=== PATIENT | male | born 1965 | race Caucasian/White ===

== ENCOUNTER 2017-02-28 12:45 | Emergency (ER) | payer OTHER ==
[~2017-02-28] VITALS: Ht 167.6 cm; Wt 117.0 kg
[~2017-02-28 12:45] MED LIST: LISI-725 PO; OMEP40CA41 PO; SIMV20TA2 PO
[2017-02-28 12:47] VITALS: TEMP 36.8; Ht 167.6 cm; Wt 117.0 kg
[2017-02-28] MEDS ORDERED: SODIUM CHLORIDE 0.9% 1000ML 1,000 ML IV STA (12:59)
[2017-02-28] MEDS ORDERED: ONDANSETRON INJ 2 MG/ML 2 ML VIAL IV STA (12:59)
[2017-02-28] MEDS ORDERED: MoRPHine SULFATE 4 MG/ML 1 ML CARP\\VIAL IV PRN (13:00)
[2017-02-28] MEDS ORDERED: IBUP-1450 PO (13:07)
[2017-02-28] MEDS ORDERED: PRLSR20 PO (13:10)
[2017-02-28 13:14] LABS: BASO % 1.1 %; BASO ABS # 0.05 K/uL (0-0.2); COMPLETE YES; EOS % 5.3 %; HEMATOCRIT 44.3 % (42-52); IG% 0.2 %; LYMPH % 38.1 %; MEAN CELL VOLUME 84.7 fL (80-100); MEAN CORPUSCULAR HEMOGLOBIN 28.7 pg (25-34); MEAN CORPUSCULAR HGB CONC 33.9 g/dl (32-36); MEAN PLATELET VOLUME 10.3 fL (7.4-10.4); MONO % 6.6 %; NEUT % 48.7 %; PLATELET COUNT 177 K/uL (130-400); RED BLOOD COUNT 5.23 M/uL (4.7-6.1); WHITE BLOOD COUNT 4.72 K/uL (4.8-10.8)
--- NOTE | 2017-02-28 13:18 | DIAGNOSTIC IMAGING REPORT ---
SINGLE VIEW CHEST CLINICAL HISTORY: Atypical chest pain. FINDINGS: An AP, portable, upright chest radiograph is compared to study dated 05/08/2016. The examination is degraded by portable technique and patient rotation. The cardiomediastinal silhouette is unremarkable. There is minimal left basilar atelectasis. The lungs and pleural spaces are otherwise clear. No pneumothorax is seen. The bony thorax is grossly intact. IMPRESSION: No active disease in the chest. Electronically signed by: Quentin Hoang M.D. 02/28/2017 1:17 PM Dictated Date/Time: 02/28/2017 1:16 PM
[2017-02-28 13:29] LABS: INR 0.9 (0.9-1.1); PARTIAL THROMBOPLASTIN RATIO 0.9
[2017-02-28 13:33] LABS: ALT/SGPT 45 U/L (12-78); AST/SGOT 34 U/L (15-37); BLOOD UREA NITROGEN 11 mg/dl (7-18); BUN/CREATININE RATIO 10.7 (10-20); CALCIUM 9.3 mg/dl (8.5-10.1); CARBON DIOXIDE 29 mmol/L (21-32); CHLORIDE 104 mmol/L (98-107); GLUCOSE 92 mg/dl (70-99); POTASSIUM 4.4 mmol/L (3.5-5.1); SODIUM 138 mmol/L (136-145)
[2017-02-28 13:38] LABS: ALKALINE PHOSPHATASE 74 U/L (45-117); CKMB/CK RATIO 1.8 (0-3.0)
[2017-02-28 13:54] LABS: URINE APPEARANCE CLEAR (CLEAR); URINE BILIRUBIN NEG (NEG); URINE COLOR YELLOW; URINE EPITHELIAL CELL AUTO >30 /lpf (0-5); URINE NITRITE NEG (NEG); URINE PH 5.5 (4.5-7.5); URINE SPECIFIC GRAVITY 1.022 (1.000-1.030); UROBILINOGEN NEG (NEG)
[2017-02-28 14:03] LABS: MANUAL MICROSCOPIC REQUIRED? NO; REVIEW REQ? NO
[2017-02-28] MEDS ORDERED: OPTIRAY 320 IV PRN (15:45)
--- NOTE | 2017-02-28 16:04 | DIAGNOSTIC IMAGING REPORT ---
ADDENDUM Addendum: A 1.4 cm hypodense right adrenal nodule likely reflects an adenoma. Electronically signed by: Kendall Sibley M.D. 02/28/2017 4:04 PM Dictated Date/Time: 02/28/2017 4:[address] OF THE ABDOMEN AND PELVIS WITH CONTRAST CLINICAL HISTORY: Epigastric pain. COMPARISON STUDY: Right upper quadrant ultrasound May 08, 2016. TECHNIQUE: Following IV administration of 94 mL of Optiray-320, axial images of the abdomen and pelvis were obtained from the lung bases to the proximal femurs. Images were reviewed in the axial, sagittal, and coronal planes. IV contrast was administered without complication. Oral contrast was administered. CT DOSE: 1322.73 mGy.cm FINDINGS: Lung bases are clear. Liver morphology is normal. A 1.2 cm hypodense lesion within the right hepatic lobe corresponds to the echogenic lesion shown on ultrasound of May 08, 2016. This likely reflects a hemangioma. A 6 mm hypodense lateral segment lesion is too small to characterize. The spleen, adrenal glands, left kidney and pancreas are normal. A 1.2 cm lesion arising from the upper pole of the right kidney measures just above water attenuation. This was shown to likely reflect a cyst on prior ultrasound. There is no biliary or pancreatic ductal dilatation. There is no peripancreatic or pericholecystic infiltration. There are multiple fat-containing ventral hernias as well as fat-containing bilateral inguinal hernias. There is a fat-containing umbilical hernia. There is no evidence of a bowel obstruction. The appendix is not visualized. There is no lymphadenopathy. Scattered colonic diverticula are noted without evidence for acute diverticulitis. No suspicious skeletal lesions are identified. IMPRESSION: 1. No acute process within the abdomen or pelvis. 2. 1.2 cm right renal lesion. This measures just above water attenuation but was shown to likely reflect a cyst on ultrasound of May 08, 2016. 3. Fat-containing bilateral inguinal hernias and multiple fat-containing ventral hernias. Electronically signed by: Kendall Sibley M.D. 02/28/2017 4:03 PM Dictated Date/Time: 02/28/2017 3:53 PM
--- NOTE | 2017-02-28 16:10 | EMERGENCY ROOM VISIT NOTE ---
History Report prepared by Shruthi: Kianna Mae Under the Supervision of: Dr. Enio Romano D.O. First contact with patient: 12:51 Chief Complaint: ABDOMINAL PAIN Stated Complaint: REAL BAD PAINS Nursing Triage Summary: pt to the ED with c/o epigastric pain and pain "around my belly button" with nausea History of Present Illness The patient is a 51 year old male who presents to the Emergency Room with complaints of intermittent abdominal pain starting a week ago. He currently rates his pain as an 8/10 in severity. The patient states that the pain is worse when he walks and lies flat. The patient complains of some trouble breathing, nausea, diarrhea, his belly being larger than normal, and intermittent melena. He notes that he has not vomited, but got sent home from work because he almost vomited twice. The patient denies the pain radiating, chest pain, back pain, constipation, hematuria, and hematochezia. He notes that he saw his PCP a month ago, but has not seen a provider for this pain. He notes that he had a stress test completed about a year ago that showed fluid on his lungs from smoking. Source of History: patient Onset: a week ago Position: abdomen Symptom Intensity: 8/10 Timing: intermittent Modifying Factors (Worsening): other (ambulating and lying flat) Associated Symptoms: + SOB, + nausea, + melena, + diarrhea, No chest pain, No back pain, No hematochezia Note: The patient complains his belly being larger than normal. The patient denies his pain radiating, constipation, and hematuria. Review of Systems See HPI for pertinent positives & negatives. A total of 10 systems reviewed and were otherwise negative. Past Medical & Surgical Medical Problems: (1) Acid reflux (2) High cholesterol (3) Hypertension (4) Skin cancer Surgical Problems: (1) History of fundoplication (2) S/P appendectomy Family History No pertinent family history Social History Smoking Status: Current Every Day Smoker Alcohol Use: none Drug Use: none Marital Status: in relationship Housing Status: lives with significant other Occupation Status: employed Current/Historical Medications Scheduled Lisinopril (Zestril), 20 MG PO QAM Omeprazole (Prilosec), 20 MG PO QAM Omeprazole (Prilosec), 1 CAP PO DAILY Ranitidine Hcl (Zantac), 150 MG PO BID Simvastatin (Zocor), 20 MG PO QAM Scheduled PRN Ibuprofen (Motrin), 600 MG PO Q6H PRN for Pain Allergies Coded Allergies: No Known Allergies (Verified , 02/28/17) Physical Exam Vital Signs Date Time Temp Pulse Resp B/P (MAP) Pulse Ox O2 Delivery O2 Flow Rate FiO2 02/28/17 17:25 52 19 120/94 98 02/28/17 15:07 55 13 158/98 100 Room Air 02/28/17 14:05 52 13 157/91 100 Room Air 02/28/17 13:26 63 17 141/68 98 Room Air 02/28/17 13:25 59 02/28/17 12:47 36.8 66 18 157/97 97 Room Air Physical Exam GENERAL: Patient is awake, alert, and anxious appearing. Patient is appears uncomfortable. EYES: The conjunctivae are clear. The pupils are round and reactive. EARS, NOSE, MOUTH AND THROAT: The nose is without any evidence of any deformity. Mucous membranes are moist tongue is midline NECK: The neck is nontender and supple. RESPIRATORY: Normal respiratory effort is noted there is no evidence of wheezing rhonchi or rales CARDIOVASCULAR: Regular rate and rhythm noted there no murmurs rubs or gallops normal S1 normal S2 GASTROINTESTINAL: The abdomen is moderately distended and diffusely tender. Epigastric tenderness to palpitation, but no guarding or rigidity appreciated.. Bowel sounds are present in all quadrants. BACK: No midline tenderness or or step-off noted range of motion in flexion extension as well as rotation no signs of muscle spasm noted MUSCULOSKELETAL/EXTREMITIES: There is no evidence of gross deformity full range of motion is noted in the hips and shoulders SKIN: There is no obvious evidence of any rash. There are no petechiae, pallor or cyanosis noted. NEUROLOGIC: Patient is awake alert and oriented x3. Medical Decision & Procedures ER Provider Diagnostic Interpretation: Radiology results as stated below per my review and radiologist interpretation: SINGLE VIEW CHEST CLINICAL HISTORY: Atypical chest pain. FINDINGS: An AP, portable, upright chest radiograph is compared to study dated 05/08/2016. The examination is degraded by portable technique and patient rotation. The cardiomediastinal silhouette is unremarkable. There is minimal left basilar atelectasis. The lungs and pleural spaces are otherwise clear. No pneumothorax is seen. The bony thorax is grossly intact. IMPRESSION: No active disease in the chest. Electronically signed by: Quentin Hoang M.D. 02/28/2017 1:17 PM Dictated Date/Time: 02/28/2017 1:[address] OF THE ABDOMEN AND PELVIS WITH CONTRAST CLINICAL HISTORY: Epigastric pain. COMPARISON STUDY: Right upper quadrant ultrasound May 08, 2016. TECHNIQUE: Following IV administration of 94 mL of Optiray-320, axial images of the abdomen and pelvis were obtained from the lung bases to the proximal femurs. Images were reviewed in the axial, sagittal, and coronal planes. IV contrast was administered without complication. Oral contrast was administered. CT DOSE: 1322.73 mGy.cm FINDINGS: Lung bases are clear. Liver morphology is normal. A 1.2 cm hypodense lesion within the right hepatic lobe corresponds to the echogenic lesion shown on ultrasound of May 08, 2016. This likely reflects a hemangioma. A 6 mm hypodense lateral segment lesion is too small to characterize. The spleen, adrenal glands, left kidney and pancreas are normal. A 1.2 cm lesion arising from the upper pole of the right kidney measures just above water attenuation. This was shown to likely reflect a cyst on prior ultrasound. There is no biliary or pancreatic ductal dilatation. There is no peripancreatic or pericholecystic infiltration. There are multiple fat-containing ventral hernias as well as fat-containing bilateral inguinal hernias. There is a fat-containing umbilical hernia. There is no evidence of a bowel obstruction. The appendix is not visualized. There is no lymphadenopathy. Scattered colonic diverticula are noted without evidence for acute diverticulitis. No suspicious skeletal lesions are identified. IMPRESSION: 1. No acute process within the abdomen or pelvis. 2. 1.2 cm right renal lesion. This measures just above water attenuation but was shown to likely reflect a cyst on ultrasound of May 08, 2016. 3. Fat-containing bilateral inguinal hernias and multiple fat-containing ventral hernias. Electronically signed by: Kendall Sibley M.D. 02/28/2017 4:03 PM Dictated Date/Time: 02/28/2017 3:53 PM Laboratory Results 02/28/17 13:00 Red Blood Count 5.23, Mean Corpuscular Volume 84.7, Mean Corpuscular Hemoglobin 28.7, Mean Corpuscular Hemoglobin Concent 33.9, Mean Platelet Volume 10.3, Neutrophils (%) (Auto) 48.7, Lymphocytes (%) (Auto) 38.1, Monocytes (%) (Auto) 6.6, Eosinophils (%) (Auto) 5.3, Basophils (%) (Auto) 1.1, Neutrophils # (Auto) 2.30, Lymphocytes # (Auto) 1.80, Monocytes # (Auto) 0.31, Eosinophils # (Auto) 0.25, Basophils # (Auto) 0.05 02/28/17 13:00 Test 02/28/17 13:00 02/28/17 13:08 02/28/17 13:40 White Blood Count 4.72 K/uL (4.8-10.8) Red Blood Count 5.23 M/uL (4.7-6.1) Hemoglobin 15.0 g/dL (14.0-18.0) Hematocrit 44.3 % (42-52) Mean Corpuscular Volume 84.7 fL (80-100) Mean Corpuscular Hemoglobin 28.7 pg (25-34) Mean Corpuscular Hemoglobin Concent 33.9 g/dl (32-36) Platelet Count 177 K/uL (130-400) Mean Platelet Volume 10.3 fL (7.4-10.4) Neutrophils (%) (Auto) 48.7 % Lymphocytes (%) (Auto) 38.1 % Monocytes (%) (Auto) 6.6 % Eosinophils (%) (Auto) 5.3 % Basophils (%) (Auto) 1.1 % Neutrophils # (Auto) 2.30 K/uL (1.4-6.5) Lymphocytes # (Auto) 1.80 K/uL (1.2-3.4) Monocytes # (Auto) 0.31 K/uL (0.11-0.59) Eosinophils # (Auto) 0.25 K/uL (0-0.5) Basophils # (Auto) 0.05 K/uL (0-0.2) RDW Standard Deviation 41.2 fL (36.4-46.3) RDW Coefficient of Variation 13.3 % (11.5-14.5) Immature Granulocyte % (Auto) 0.2 % Immature Granulocyte # (Auto) 0.01 K/uL (0.00-0.02) Prothrombin Time 10.0 SECONDS (9.0-12.0) Prothromb Time International Ratio 0.9 (0.9-1.1) Activated Partial Thromboplast Time 24.0 SECONDS (21.0-31.0) Partial Thromboplastin Ratio 0.9 Anion Gap 5.0 mmol/L (3-11) Est Creatinine Clear Calc Drug Dose 102.8 ml/min Estimated GFR () 99.2 Estimated GFR (Non- 85.5 BUN/Creatinine Ratio 10.7 (10-20) Calcium Level 9.3 mg/dl (8.5-10.1) Total Bilirubin 0.4 mg/dl (0.2-1) Direct Bilirubin 0.1 mg/dl (0-0.2) Aspartate Amino Transf (AST/SGOT) 34 U/L (15-37) Alanine Aminotransferase (ALT/SGPT) 45 U/L (12-78) Alkaline Phosphatase 74 U/L (45-117) Total Creatine Kinase 684 U/L (39-308) Creatine Kinase MB 12.2 ng/ml (0.5-3.6) Creatine Kinase MB Ratio 1.8 (0-3.0) Troponin I < 0.015 ng/ml (0-0.045) Total Protein 7.6 gm/dl (6.4-8.2) Albumin 3.9 gm/dl (3.4-5.0) Lipase 131 U/L (73-393) Bedside Lactic Acid Venous 1.18 mmol/L (0.90-1.70) Urine Color YELLOW Urine Appearance CLEAR (CLEAR) Urine pH 5.5 (4.5-7.5) Urine Specific [place] 1.022 (1.000-1.030) Urine Protein NEG (NEG) Urine Glucose (UA) NEG (NEG) Urine Ketones NEG (NEG) Urine Occult Blood NEG (NEG) Urine Nitrite NEG (NEG) Urine Bilirubin NEG (NEG) Urine Urobilinogen NEG (NEG) Urine Leukocyte Esterase TRACE (NEG) Urine WBC (Auto) 1-5 /hpf (0-5) Urine RBC (Auto) 0-4 /hpf (0-4) Urine Hyaline Casts (Auto) 1-5 /lpf (0-5) Urine Epithelial Cells (Auto) >30 /lpf (0-5) Urine Bacteria (Auto) NEG (NEG) Laboratory results per my review. Medications Administered Medications (Trade) Dose Ordered Sig/Avis Route Start Time Stop Time Status Last Admin Dose Admin Sodium Chloride 1,000 ml @ 999 mls/hr Q1H1M STAT IV 02/28/17 12:59 02/28/17 13:59 DC 02/28/17 13:23 999 MLS/HR Ondansetron HCl (Zofran Inj) 4 mg NOW STAT IV 02/28/17 12:59 02/28/17 13:01 DC 02/28/17 13:24 4 MG Morphine Sulfate (MoRPHine SULFATE INJ) 4 mg Q15M PRN IV 02/28/17 13:00 02/28/17 17:42 DC 02/28/17 13:24 4 MG ECG Indication: abdominal pain Rate (beats per minute): 56 Rhythm: sinus bradycardia Findings: no ectopy, other (no acute ST segment abnormalities) Comparison ECG Date: 05/08/2016 Change: no significant change ED Course 1252: The patient was evaluated in room A10. A complete history and physical examination were performed. 1259: Ordered zofran Inj 4 mg IV, NSS 1000 ml @ 999 mls/hr IV. 1300: Ordered Morphine Sulfate 4 mg PRN IV pain. 1711: Upon reevaluation, the patient is resting comfortably. I discussed the results and treatment plan with him. He verbalized agreement of the treatment plan. The patient was discharged home. Medical Decision Medication Reconciliation: I attest that I have personally reviewed the patient' s current medications list. Patient was found to have a slightly elevated blood pressure due to circumstances. I do not believe that the patient requires hypertension monitoring. Differential diagnosis: Etiologies such as appendicitis, diverticulitis, PUD, biliary pathology, UTI, pancreatitis, obstruction, mesenteric ischemia, aortic pathology, infections, inflammatory bowel disease, renal colic, as well as others were entertained. The patient is a 51-year-old male who presented to the emergency department for an evaluation of upper abdominal pain. The patient had reproducible epigastric abdominal pain which was very severe. He doesn't a history of peptic ulcer disease. The patient was treated with IV fluids IV pain medicine and IV antiemetics. On subsequent reevaluation he was feeling much better. I discussed the patient's laboratory and radiographic studies with him. I encouraged him to avoid any fatty spicy or fried foods as well as avoid NSAIDs. He was encouraged to call his family Dr. to schedule a follow-up appointment. He was also encouraged to continue all medications as prescribed and discussed the possibility that he may require a referral to a agricultural researcher in the future. He was also encouraged to return to the emergency Department immediately if symptoms change worsen or the need arises. Impression Primary Impression: Epigastric abdominal pain Scribe Attestation The scribe's documentation has been prepared under my direction and personally reviewed by me in its entirety. I confirm that the note above accurately reflects all work, treatment, procedures, and medical decision making performed by me. Departure Information Dispostion Home / Self-Care Prescriptions Omeprazole (PRILOSEC) 40 Mg Cap 1 CAP PO DAILY for 30 Days, #30 CAP Prov: Enio Romano, DO 02/28/17 Ranitidine Hcl (ZANTAC) 150 Mg Tab 150 MG PO BID, #60 TAB Prov: Enio Romano, DO 02/28/17 Referrals Brady Vaughn PA-C (PCP) Forms Call Back Authorization, HOME CARE DOCUMENTATION FORM, IMPORTANT VISIT INFORMATION Patient Instructions My [facility] Additional Instructions Call your family to schedule a follow-up appointment. Continue using Tylenol as directed for pain. Avoid NSAIDs such as Aleve ibuprofen and Motrin. Continue using Maalox or Mylanta as directed for symptomatically relief. Stop taking her Prilosec 20 milligrams and start taking the Prilosec 40 milligrams every day. Discuss with your family whether or not you may need to be referred to a agricultural researcher. Avoid any fatty spicy or fried foods.
[2017-02-28] MEDS ORDERED: OMEP40CA41 PO (17:13)
[2017-02-28] MEDS ORDERED: RANI150T3 PO (17:13)
[2017-02-28 17:25] VITALS: BP 120/94; PULSE 52; O2SAT 98
== END 2017-02-28 17:26 | disposition home or self-care (01) ==
LOC: C.EDB 12:46 → C.EDA 17:26
DX: R10.13 Epigastric pain (principal); I10 Essential (primary) hypertension; E78.00 Pure hypercholesterolemia, unspecified; K21.9 Gastro-esophageal reflux disease without esophagitis; F17.200 Nicotine dependence, unspecified, uncomplicated; Z85.828 Personal history of other malignant neoplasm of skin; Z79.899 Other long term (current) drug therapy; Z98.890 Other specified postprocedural states

== ENCOUNTER 2017-06-12 17:56 | Emergency (ER) | payer OTHER ==
[~2017-06-12] VITALS: Ht 167.6 cm; Wt 116.1 kg
[2017-06-12 17:56] VITALS: TEMP 36.8; Ht 167.6 cm; Wt 116.1 kg
[~2017-06-12 17:56] MED LIST changes: +IBUP-1450 PO; -OMEP40CA41 PO; +PRLSR20 PO; +RANI150T3 PO
[2017-06-12] MEDS ORDERED: KETOROLAC TROMETHAMINE 30 MG/ML VIAL IV STA (18:03)
[2017-06-12] MEDS ORDERED: ONDANSETRON INJ 2 MG/ML 2 ML VIAL IV STA (18:03)
[2017-06-12] MEDS ORDERED: SODIUM CHLORIDE 0.9% 1000ML 1,000 ML IV STA (18:03)
--- NOTE | 2017-06-12 18:12 | EMERGENCY ROOM VISIT NOTE ---
History Report prepared by Shruthi: Nilay Allison Under the Supervision of: Dr. Quentin Erickson M.D. First contact with patient: 17:59 Chief Complaint: ABDOMINAL PAIN Stated Complaint: AB PAIN History of Present Illness The patient is a 51 year old male who presents to the Emergency Room via EMS with complaints of worsening abdominal pain that started 2 weeks ago. He says that the abdominal pain worsened today, and he feels a bit of abdominal bloating. The patient notes that his pain is currently an 8 out of 10 in severity. He states that he vomited twice at work this morning. The patient adds that nothing makes the pain better or worse. Per the patient's , the patient felt really hot and sweaty at their house earlier today. The patient notes that he has a history of surgery for a ruptured appendix as well as surgery for acid reflux. He says that he still has his gallbladder, and he has no history of a bowel obstruction. He denies any diarrhea or urinary symptoms. Source of History: patient, spouse/significant other Onset: 2 weeks ago Position: abdomen Symptom Intensity: 8/10 Timing: worsening Associated Symptoms: + vomiting, No diarrhea, No urinary symptoms Note: Associated symptoms: Abdominal bloating. [place] hot and sweaty earlier today. Review of Systems See HPI for pertinent positives & negatives. A total of 10 systems reviewed and were otherwise negative. Past Medical & Surgical Medical Problems: (1) Acid reflux (2) High cholesterol (3) Hypertension (4) Skin cancer Surgical Problems: (1) History of fundoplication (2) S/P appendectomy Family History No pertinent family history Social History Smoking Status: Former Smoker Alcohol Use: none Drug Use: none Marital Status: in relationship Housing Status: lives with significant other Occupation Status: employed Current/Historical Medications Scheduled Lisinopril (Zestril), 20 MG PO QAM Omeprazole (Prilosec), 20 MG PO QAM Ranitidine Hcl (Zantac), 150 MG PO BID Simvastatin (Zocor), 20 MG PO QAM Scheduled PRN Ibuprofen (Motrin), 600 MG PO Q6H PRN for Pain Allergies Coded Allergies: No Known Allergies (Verified , 02/28/17) Physical Exam Vital Signs Date Time Temp Pulse Resp B/P (MAP) Pulse Ox O2 Delivery O2 Flow Rate FiO2 06/12/17 21:35 65 16 142/84 98 06/12/17 20:33 63 17 131/82 97 Room Air 06/12/17 20:00 64 16 115/65 97 Room Air 06/12/17 19:42 63 12 108/65 99 Room Air 06/12/17 18:30 70 17 121/85 98 Room Air 06/12/17 18:18 71 16 122/75 97 Room Air 06/12/17 18:06 76 06/12/17 17:56 36.8 76 17 148/93 98 Room Air Physical Exam GENERAL: Patient is in no acute distress. HEENT: No acute trauma, normocephalic atraumatic, mucous membranes moist, no nasal congestion, no scleral icterus. NECK: No stridor, no adenopathy, no meningismus, trachea is midline. LUNGS: Clear to auscultation bilaterally, no wheeze, no rhonchi, breath sounds equal. HEART: Without murmurs gallops or rubs, regular rate and rhythm. ABDOMEN: Tender in epigastrium and along the left side of abdomen. Soft, bowel sounds positive, no hernias, no peritonitis. EXTREMITIES: No cyanosis or edema, full range of motion of all the joints without pain or difficulty, no signs for acute trauma. NEUROLOGIC: Oriented x 3, no acute motor or sensory deficits, no focal weakness. SKIN: No rash, no jaundice, no diaphoresis. Medical Decision & Procedures ER Provider Diagnostic Interpretation: Radiology results as stated below per my review and radiologist interpretation: CHEST ONE VIEW PORTABLE HISTORY: Generalized abdominal pain. COMPARISON: Chest 02/28/2017. FINDINGS: The lungs are clear. Cardiac silhouette is normal in size. No pleural effusions. No pneumothorax. IMPRESSION: No acute process. Electronically signed by: Temo Solitario M.D. 06/12/2017 6:38 PM Dictated Date/Time: 06/12/2017 6:[address] SCAN OF THE ABDOMEN AND PELVIS WITH IV CONTRAST CLINICAL HISTORY: Generalized abdominal pain. COMPARISON STUDY: Abdominal CT dated 02/28/2017. TECHNIQUE: Following the IV administration of 117 cc of Optiray 320, CT scan of the abdomen and pelvis is performed from the lung bases to the proximal femora. Images are reviewed in the axial, sagittal, and coronal planes. IV contrast was administered without complication. A dose lowering technique was utilized adhering to the principles of ALARA. CT DOSE: 1579.79 mGy.cm FINDINGS: Lung bases: The heart is normal in size and without pericardial effusion. The lung bases are clear. Liver: The contrast-enhanced liver is normal in size, contour, and attenuation. There is no intrahepatic biliary ductal dilatation. The hepatic veins and portal veins are patent. Gallbladder: Unremarkable. Spleen: Normal in size and attenuation. Pancreas: Unremarkable. Adrenal glands: Unremarkable. Kidneys: The contrast enhanced kidneys are normal in size and without hydronephrosis. The kidneys enhance symmetrically. A 13 mm cyst is present in the upper pole of the right kidney. Abdominal vasculature: The abdominal aorta is normal in course and caliber noting moderate atherosclerotic calcification. A 1.7 cm saccular aneurysm is seen in the proximal abdominal aorta on axial image #166. Bowel: No bowel obstruction is seen. There are scattered colonic diverticula without CT evidence of acute diverticulitis. The appendix is not identified and reported surgically absent. Peritoneum: There is no intraperitoneal free air or abdominal ascites. There is a fat-containing umbilical hernia. A complex fat-containing supraumbilical hernia is seen on axial image #178. Additional fat-containing supraumbilical hernias are identified on images #115, #138, and #151. Lymphadenopathy: None. Pelvic viscera: The bladder, prostate, and seminal vesicles are normal as visualized. There are bilateral fat-containing inguinal hernias. Skeletal structures: No lytic or blastic lesions are seen. IMPRESSION: 1. There are no acute infectious or inflammatory findings in the abdomen or pelvis. 2. There are scattered colonic diverticula without CT evidence of acute epiglottis. 3. There is a 1.7 cm saccular aneurysm identified in the proximal abdominal aorta. This is similar to previous. 4. There are numerous fat-containing ventral hernias as well as bilateral fat-containing inguinal hernias. 5. Additional findings as above. Electronically signed by: Quentin Hoang M.D. 06/12/2017 7:22 PM Dictated Date/Time: 06/12/2017 7:13 PM Laboratory Results 06/12/17 17:32 Red Blood Count 4.99, Mean Corpuscular Volume 85.6, Mean Corpuscular Hemoglobin 29.3, Mean Corpuscular Hemoglobin Concent 34.2, Mean Platelet Volume 10.6, Neutrophils (%) (Auto) 58.3, Lymphocytes (%) (Auto) 31.6, Monocytes (%) (Auto) 6.4, Eosinophils (%) (Auto) 2.9, Basophils (%) (Auto) 0.5, Neutrophils # (Auto) 3.45, Lymphocytes # (Auto) 1.87, Monocytes # (Auto) 0.38, Eosinophils # (Auto) 0.17, Basophils # (Auto) 0.03 06/12/17 17:32 Test 06/12/17 17:32 06/12/17 20:10 White Blood Count 5.92 K/uL (4.8-10.8) Red Blood Count 4.99 M/uL (4.7-6.1) Hemoglobin 14.6 g/dL (14.0-18.0) Hematocrit 42.7 % (42-52) Mean Corpuscular Volume 85.6 fL (80-100) Mean Corpuscular Hemoglobin 29.3 pg (25-34) Mean Corpuscular Hemoglobin Concent 34.2 g/dl (32-36) Platelet Count 178 K/uL (130-400) Mean Platelet Volume 10.6 fL (7.4-10.4) Neutrophils (%) (Auto) 58.3 % Lymphocytes (%) (Auto) 31.6 % Monocytes (%) (Auto) 6.4 % Eosinophils (%) (Auto) 2.9 % Basophils (%) (Auto) 0.5 % Neutrophils # (Auto) 3.45 K/uL (1.4-6.5) Lymphocytes # (Auto) 1.87 K/uL (1.2-3.4) Monocytes # (Auto) 0.38 K/uL (0.11-0.59) Eosinophils # (Auto) 0.17 K/uL (0-0.5) Basophils # (Auto) 0.03 K/uL (0-0.2) RDW Standard Deviation 42.6 fL (36.4-46.3) RDW Coefficient of Variation 13.6 % (11.5-14.5) Immature Granulocyte % (Auto) 0.3 % Immature Granulocyte # (Auto) 0.02 K/uL (0.00-0.02) Anion Gap 7.0 mmol/L (3-11) Est Creatinine Clear Calc Drug Dose 96.6 ml/min Estimated GFR () 92.4 Estimated GFR (Non- 79.7 BUN/Creatinine Ratio 10.7 (10-20) Calcium Level 9.0 mg/dl (8.5-10.1) Total Bilirubin 0.5 mg/dl (0.2-1) Aspartate Amino Transf (AST/SGOT) 50 U/L (15-37) Alanine Aminotransferase (ALT/SGPT) 45 U/L (12-78) Alkaline Phosphatase 71 U/L (45-117) Troponin I < 0.015 ng/ml (0-0.045) Total Protein 7.7 gm/dl (6.4-8.2) Albumin 4.1 gm/dl (3.4-5.0) Globulin 3.6 gm/dl (2.5-4.0) Albumin/Globulin Ratio 1.1 (0.9-2) Lipase 169 U/L (73-393) Urine Color YELLOW Urine Appearance CLEAR (CLEAR) Urine pH 5.0 (4.5-7.5) Urine Specific [place] > 1.045 (1.000-1.030) Urine Protein NEG (NEG) Urine Glucose (UA) NEG (NEG) Urine Ketones NEG (NEG) Urine Occult Blood NEG (NEG) Urine Nitrite NEG (NEG) Urine Bilirubin NEG (NEG) Urine Urobilinogen NEG (NEG) Urine Leukocyte Esterase NEG (NEG) Laboratory results reviewed by me. Medications Administered Medications (Trade) Dose Ordered Sig/Avis Route Start Time Stop Time Status Last Admin Dose Admin Ondansetron HCl (Zofran Inj) 4 mg NOW STAT IV 06/12/17 18:03 06/12/17 18:09 DC 06/12/17 18:19 4 MG Sodium Chloride 1,000 ml @ 999 mls/hr Q1H1M STAT IV 06/12/17 18:03 06/12/17 19:03 DC 06/12/17 18:18 999 MLS/HR Ketorolac Tromethamine (Toradol Inj) 30 mg NOW STAT IV 06/12/17 18:03 06/12/17 18:09 DC 06/12/17 18:19 30 MG Ondansetron HCl (ZOFRAN ODT 4MG Home Pack) 1 homepack UD ONCE PO 06/12/17 21:30 06/12/17 21:31 DC 06/12/17 21:29 1 HOMEPACK ECG Indication: abdominal pain Rate (beats per minute): 74 Rhythm: normal sinus Findings: no acute ischemic change, no ectopy, other (nonspecific T-wave change ) ED Course 1800: The patient was evaluated in room C4. A complete history and physical exam was performed. 1802: Ordered Toradol Inj 30 mg IV, NSS 1000 ml @ 999 mls/hr IV, Zofran Inj 4 mg IV. 2114: Reevaluated the patient and he is doing well. Discussed results and discharge instructions: he verbalized understanding and agreement. The patient is ready for discharge. 2129: Ordered Zofran ODT 4MG Home Pack 1 homepack PO. Medical Decision Differential diagnosis includes but is not limited to pancreatitis or diverticulitis, bowel obstruction, gastritis, ulcer, reflux, pancreatitis or biliary colic, musculoskeletal pain, viral illness, food borne illness. There is no leukocytosis or concerning anemia. No significant electrolyte abnormality, kidney failure, hepatitis or pancreatitis. Urinalysis does not show evidence for infection, no significant hematuria. Chest x-ray does not show free air, pneumonia or pneumothorax. EKG shows a sinus rhythm, no acute ischemia. Cardiac enzyme testing 1 is not consistent with acute cardiac injury. Abdominal and pelvis CT does not show evidence for bowel obstruction or for diverticulitis. No acute surgical process by CT. The patient received IV Toradol, IV Zofran and IV saline, he feels improved, he has taken oral liquids and would like to be discharged home. The cause for his symptoms is unclear, this illness may be viral. He may have had something to eat that disagreed with him. I do think an outpatient follow- up is appropriate. He was discharged with a few Zofran to use for his symptoms. He was told to stick to a very bland and simple diet, if worsening, he will return. Medication Reconcilliation Current Medication List: was personally reviewed by me Blood Pressure Screening Patient's blood pressure: Normal blood pressure Impression Primary Impression: Epigastric abdominal pain Additional Impression: Vomiting Scribe Attestation The scribe's documentation has been prepared under my direction and personally reviewed by me in its entirety. I confirm that the note above accurately reflects all work, treatment, procedures, and medical decision making performed by me. Departure Information Dispostion Home / Self-Care Referrals Brady Vaughn PA-C (PCP) Forms Call Back Authorization, HOME CARE DOCUMENTATION FORM, IMPORTANT VISIT INFORMATION, Work Instructions Patient Instructions My [facility] Additional Instructions bland diet---crackers, soup, toast, gatorade zofran 1 tab as needed every 6 hours for nausea rest return if worsening testing today was all ok off work tomorrow 06/13/17 Problem Qualifiers
[2017-06-12] MEDS ORDERED: OPTIRAY 320 IV PRN (18:15)
[2017-06-12] MEDS ORDERED: MoRPHine SULFATE 4 MG/ML 1 ML CARP\\VIAL IV PRN (18:15)
[2017-06-12 18:24] LABS: BASO % 0.5 %; BASO ABS # 0.03 K/uL (0-0.2); COMPLETE YES; EOS % 2.9 %; HEMATOCRIT 42.7 % (42-52); IG% 0.3 %; LYMPH % 31.6 %; LYMPH ABS # 1.87 K/uL (1.2-3.4); MEAN CELL VOLUME 85.6 fL (80-100); MEAN CORPUSCULAR HEMOGLOBIN 29.3 pg (25-34); MEAN CORPUSCULAR HGB CONC 34.2 g/dl (32-36); MEAN PLATELET VOLUME 10.6 fL (7.4-10.4); MONO % 6.4 %; NEUT % 58.3 %; PLATELET COUNT 178 K/uL (130-400); RED BLOOD COUNT 4.99 M/uL (4.7-6.1); WHITE BLOOD COUNT 5.92 K/uL (4.8-10.8)
--- NOTE | 2017-06-12 18:40 | DIAGNOSTIC IMAGING REPORT ---
CHEST ONE VIEW PORTABLE HISTORY: Generalized abdominal pain. COMPARISON: Chest 02/28/2017. FINDINGS: The lungs are clear. Cardiac silhouette is normal in size. No pleural effusions. No pneumothorax. IMPRESSION: No acute process. Electronically signed by: Temo Solitario M.D. 06/12/2017 6:38 PM Dictated Date/Time: 06/12/2017 6:36 PM
[2017-06-12 18:46] LABS: ALT/SGPT 45 U/L (12-78); AST/SGOT 50 U/L (15-37); BLOOD UREA NITROGEN 11 mg/dl (7-18); BUN/CREATININE RATIO 10.7 (10-20); CARBON DIOXIDE 28 mmol/L (21-32); CHLORIDE 105 mmol/L (98-107); CREATININE 1.06 mg/dl (0.60-1.40); GLUCOSE 87 mg/dl (70-99); POTASSIUM 4.1 mmol/L (3.5-5.1); SODIUM 140 mmol/L (136-145)
[2017-06-12 18:51] LABS: ALB/GLOB RATIO 1.1 (0.9-2); ALKALINE PHOSPHATASE 71 U/L (45-117)
--- NOTE | 2017-06-12 19:23 | DIAGNOSTIC IMAGING REPORT ---
CT SCAN OF THE ABDOMEN AND PELVIS WITH IV CONTRAST CLINICAL HISTORY: Generalized abdominal pain. COMPARISON STUDY: Abdominal CT dated 02/28/2017. TECHNIQUE: Following the IV administration of 117 cc of Optiray 320, CT scan of the abdomen and pelvis is performed from the lung bases to the proximal femora. Images are reviewed in the axial, sagittal, and coronal planes. IV contrast was administered without complication. A dose lowering technique was utilized adhering to the principles of ALARA. CT DOSE: 1579.79 mGy.cm FINDINGS: Lung bases: The heart is normal in size and without pericardial effusion. The lung bases are clear. Liver: The contrast-enhanced liver is normal in size, contour, and attenuation. There is no intrahepatic biliary ductal dilatation. The hepatic veins and portal veins are patent. Gallbladder: Unremarkable. Spleen: Normal in size and attenuation. Pancreas: Unremarkable. Adrenal glands: Unremarkable. Kidneys: The contrast enhanced kidneys are normal in size and without hydronephrosis. The kidneys enhance symmetrically. A 13 mm cyst is present in the upper pole of the right kidney. Abdominal vasculature: The abdominal aorta is normal in course and caliber noting moderate atherosclerotic calcification. A 1.7 cm saccular aneurysm is seen in the proximal abdominal aorta on axial image #166. Bowel: No bowel obstruction is seen. There are scattered colonic diverticula without CT evidence of acute diverticulitis. The appendix is not identified and reported surgically absent. Peritoneum: There is no intraperitoneal free air or abdominal ascites. There is a fat-containing umbilical hernia. A complex fat-containing supraumbilical hernia is seen on axial image #178. Additional fat-containing supraumbilical hernias are identified on images #115, #138, and #151. Lymphadenopathy: None. Pelvic viscera: The bladder, prostate, and seminal vesicles are normal as visualized. There are bilateral fat-containing inguinal hernias. Skeletal structures: No lytic or blastic lesions are seen. IMPRESSION: 1. There are no acute infectious or inflammatory findings in the abdomen or pelvis. 2. There are scattered colonic diverticula without CT evidence of acute epiglottis. 3. There is a 1.7 cm saccular aneurysm identified in the proximal abdominal aorta. This is similar to previous. 4. There are numerous fat-containing ventral hernias as well as bilateral fat-containing inguinal hernias. 5. Additional findings as above. Electronically signed by: Quentin Hoang M.D. 06/12/2017 7:22 PM Dictated Date/Time: 06/12/2017 7:13 PM
[2017-06-12 20:56] LABS: URINE APPEARANCE CLEAR (CLEAR); URINE BILIRUBIN NEG (NEG); URINE COLOR YELLOW; URINE NITRITE NEG (NEG); URINE SPECIFIC GRAVITY > 1.045 (1.000-1.030); UROBILINOGEN NEG (NEG); ZZUR CULT IF INDIC CLEAN CATCH NO
[2017-06-12 20:59] LABS: MANUAL MICROSCOPIC REQUIRED? NO; REVIEW REQ? NO
[2017-06-12] MEDS ORDERED: ONDANSETRON HOME PACK 4MG OD TAB PO ONE (21:30)
[2017-06-12 21:35] VITALS: BP 142/84; PULSE 65; O2SAT 98
== END 2017-06-12 21:35 | disposition home or self-care (01) ==
LOC: EDBD 17:56 → C.EDC 17:58
DX: R10.13 Epigastric pain (principal); R11.10 Vomiting, unspecified; I10 Essential (primary) hypertension; E78.00 Pure hypercholesterolemia, unspecified; K21.9 Gastro-esophageal reflux disease without esophagitis; Z85.828 Personal history of other malignant neoplasm of skin; Z98.890 Other specified postprocedural states; Z87.891 Personal history of nicotine dependence; Z79.899 Other long term (current) drug therapy

== ENCOUNTER 2017-10-26 18:44 | Emergency (ER) | payer OTHER ==
[~2017-10-26] VITALS: Ht 167.6 cm; Wt 114.7 kg
[~2017-10-26 18:44] MED LIST changes: -RANI150T3 PO
[2017-10-26 18:50] VITALS: TEMP 37; Ht 167.6 cm; Wt 114.7 kg
[2017-10-26] MEDS ORDERED: FENTANYL CITRATE INJ 50 MCG/1 ML 2 ML VIAL IV STA (18:59)
[2017-10-26] MEDS ORDERED: SODIUM CHLORIDE 0.9% 1000ML 1,000 ML IV STA (18:59)
--- NOTE | 2017-10-26 19:07 | EMERGENCY ROOM VISIT NOTE ---
History Report prepared by Shruthi: Nilay Allison Under the Supervision of: Dr. Bryan Navarro M.D. First contact with patient: 18:54 Chief Complaint: ILLNESS Stated Complaint: SICK TO STOMACH, HEAD HURTS History of Present Illness The patient is a 51 year old male who presents to the Emergency Room with complaints of intermittent abdominal pain that started around 6 hours ago while at work. 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 He currently rates his pain as an 8 out of 10 in severity. He states that he has had this pain before, and at that time a 2 cm aneurysm in his abdomen was discovered on CT. The patient was told that nothing could be done until the aneurysm got larger. He says that he has not had another CT since then. He denies any fevers, chills, cough, congestion, nausea, vomiting, or urinary symptoms. The patient adds that he has been having episodes of diarrhea over the past few days. His last bowel movement was this morning. He is not on any blood thinners. He notes a history of hyperlipidemia and hypertension. The patient says that he has been eating okay. He states that he has a history of a surgical repair of a ruptured appendix as well as surgery for acid reflux. Source of History: patient, spouse/significant other Onset: Around 6 hours ago Position: abdomen Symptom Intensity: 8/10 Quality: other (pain) Timing: intermittent Associated Symptoms: + diarrhea, No fevers, No chills, No cough (or congestion), No nausea, No vomiting, No urinary symptoms Review of Systems See HPI for pertinent positives and negatives. A total of ten systems were reviewed and were otherwise negative. Past Medical & Surgical Medical Problems: (1) Acid reflux (2) High cholesterol (3) Hypertension (4) Skin cancer Surgical Problems: (1) History of fundoplication (2) S/P appendectomy Family History No pertinent family history Social History Smoking Status: Current Some Day Smoker Alcohol Use: none Drug Use: none Marital Status: in relationship Housing Status: lives with significant other Occupation Status: employed Current/Historical Medications Scheduled Lisinopril (Zestril), 20 MG PO QAM Omeprazole (Prilosec), 20 MG PO QAM Simvastatin (Zocor), 20 MG PO QAM Scheduled PRN Ibuprofen (Motrin), 600 MG PO Q6H PRN for Pain Allergies Coded Allergies: No Known Allergies (Verified , 10/26/17) Physical Exam Vital Signs Date Time Temp Pulse Resp B/P (MAP) Pulse Ox O2 Delivery O2 Flow Rate FiO2 10/26/17 20:52 63 18 114/74 100 10/26/17 19:20 69 10/26/17 19:17 66 18 110/70 98 Room Air 10/26/17 18:50 37.0 81 20 139/94 97 Room Air Physical Exam GENERAL: Awake, alert, well-appearing, in no distress HENT: Normocephalic, atraumatic. Dry mucous membranes. EYES: Normal conjunctiva. Sclera non-icteric. NECK: Supple. No nuchal rigidity. FROM. No JVD. RESPIRATORY: Clear to auscultation. CARDIAC: Regular rate, normal rhythm. Extremities warm and well perfused. Pulses equal. ABDOMEN: Obese abdomen with large remote post-surgical scar, apparent periumbilical hernia. Mild periumbilical tenderness. No peritoneal signs. No rebound or guarding. No masses. RECTAL: Deferred. MUSCULOSKELETAL: Chest examination reveals no tenderness. The back is symmetrical on inspection without obvious abnormality. There is no CVA tenderness to palpation. No joint edema. LOWER EXTREMITIES: Calves are equal size bilaterally and non-tender. No edema. No discoloration. NEURO: Normal sensorium. No sensory or motor deficits noted. SKIN: No rash or jaundice noted. Medical Decision & Procedures Laboratory Results 10/26/17 19:18 Red Blood Count 4.96, Mean Corpuscular Volume 84.9, Mean Corpuscular Hemoglobin 29.4, Mean Corpuscular Hemoglobin Concent 34.7, Mean Platelet Volume 9.8, Neutrophils (%) (Auto) 60.9, Lymphocytes (%) (Auto) 30.8, Monocytes (%) (Auto) 5.1, Eosinophils (%) (Auto) 2.5, Basophils (%) (Auto) 0.4, Neutrophils # (Auto) 4.18, Lymphocytes # (Auto) 2.11, Monocytes # (Auto) 0.35, Eosinophils # (Auto) 0.17, Basophils # (Auto) 0.03 10/26/17 19:18 Test 10/26/17 19:18 10/26/17 19:28 White Blood Count 6.86 K/uL (4.8-10.8) Red Blood Count 4.96 M/uL (4.7-6.1) Hemoglobin 14.6 g/dL (14.0-18.0) Hematocrit 42.1 % (42-52) Mean Corpuscular Volume 84.9 fL (80-100) Mean Corpuscular Hemoglobin 29.4 pg (25-34) Mean Corpuscular Hemoglobin Concent 34.7 g/dl (32-36) Platelet Count 173 K/uL (130-400) Mean Platelet Volume 9.8 fL (7.4-10.4) Neutrophils (%) (Auto) 60.9 % Lymphocytes (%) (Auto) 30.8 % Monocytes (%) (Auto) 5.1 % Eosinophils (%) (Auto) 2.5 % Basophils (%) (Auto) 0.4 % Neutrophils # (Auto) 4.18 K/uL (1.4-6.5) Lymphocytes # (Auto) 2.11 K/uL (1.2-3.4) Monocytes # (Auto) 0.35 K/uL (0.11-0.59) Eosinophils # (Auto) 0.17 K/uL (0-0.5) Basophils # (Auto) 0.03 K/uL (0-0.2) RDW Standard Deviation 41.6 fL (36.4-46.3) RDW Coefficient of Variation 13.5 % (11.5-14.5) Immature Granulocyte % (Auto) 0.3 % Immature Granulocyte # (Auto) 0.02 K/uL (0.00-0.02) Est Creatinine Clear Calc Drug Dose 92.4 ml/min Estimated GFR () 88.4 Estimated GFR (Non- 76.2 BUN/Creatinine Ratio 16.6 (10-20) Lactic Acid Level 0.8 mmol/L (0.4-2.0) Calcium Level 9.6 mg/dl (8.5-10.1) Total Bilirubin 0.4 mg/dl (0.2-1) Direct Bilirubin 0.1 mg/dl (0-0.2) Aspartate Amino Transf (AST/SGOT) 31 U/L (15-37) Alanine Aminotransferase (ALT/SGPT) 38 U/L (12-78) Alkaline Phosphatase 66 U/L (45-117) Total Protein 7.8 gm/dl (6.4-8.2) Albumin 4.1 gm/dl (3.4-5.0) Lipase 114 U/L (73-393) Bedside Hemoglobin 13.3 g/dl (14.0-18.0) Bedside Hematocrit 39 % (42-52) Bedside Sodium 140 mEq/L (135-144) Bedside Potassium 4.3 mEq/L (3.3-5.0) Bedside Chloride 101 mEq/L (101-112) Bedside Total CO2 31 mEq/l (24-31) Anion Gap 13.0 mmol/L (16-25) Bedside Blood Urea Nitrogen 23 mg/dl (7-18) Bedside Creatinine 1.1 mg/dl (0.6-1.3) Bedside Glucose (other) 84 mg/dl (70-99) Bedside Ionized Calcium (Jacque) 1.21 mmol/l (1.12-1.32) Laboratory results reviewed by me Medications Administered Medications (Trade) Dose Ordered Sig/Avis Route Start Time Stop Time Status Last Admin Dose Admin Sodium Chloride 1,000 ml @ 999 mls/hr Q1H1M STAT IV 10/26/17 18:59 10/26/17 19:59 DC 10/26/17 19:32 999 MLS/HR ECG Per My Interpretation Indication: abdominal pain Rate (beats per minute): 71 Rhythm: normal sinus Findings: no acute ischemic change, other (normal axis) ED Course 1857: The patient was evaluated in room C12B. A complete history and physical exam was performed. Medical Decision I reviewed the patient's past medical history, medications, and the nursing notes as described above. Differential diagnosis: Etiologies such as appendicitis, diverticulitis, PUD, biliary pathology, UTI, pancreatitis, obstruction, mesenteric ischemia, aortic pathology, infections, inflammatory bowel disease, renal colic, as well as others were entertained. The patient is a 51 yo gentleman with a pmhx of fundoplication and appendectomy as well as known aortic aneurysm presents to the emergency department with periumbilical abdominal pain that began this afternoon after lifting a heavy box at work per HPI. On arrival the patient is in NAD, AFVSS. On exam, has mild periumbilical ttp. No peritoneal signs. Equal pulses. Labs unremarkable including wbc and lactate wnl. CT abd/pel negative for acute findings. Patient feeling improved after IVF hydration. Unclear etiology to patient's sx at this time. Possibly muscular strain given patient reports pain after lifting a heavy box at work. Findings and plan for follow-up reviewed with patient. Patient agreeable and d/c'd per discharge instructions. Medication Reconcilliation Current Medication List: was personally reviewed by me Blood Pressure Screening Patient's blood pressure: Elevated blood pressure Blood pressure disposition: Elevated BP felt to be situational Impression Primary Impression: Abdominal pain Scribe Attestation The scribe's documentation has been prepared under my direction and personally reviewed by me in its entirety. I confirm that the note above accurately reflects all work, treatment, procedures, and medical decision making performed by me. Departure Information Dispostion Home / Self-Care Referrals Brady Vaughn PA-C (PCP) Patient Instructions ED Abdominal Pain Unkn Cause, My [facility] Additional Instructions Please follow up with your primary care physician on Saturday for re-evaluation. The cause of your symptoms is unclear at this time. However, your exam, lab results, and CT scan did not show signs of an emergent condition at this time. Of note, your known abdominal aortic aneurysm is unchanged. Drink plenty of fluids to ensure hydration. Return to the emergency department for worsening symptoms as described in the accompanying instructions.
[2017-10-26] MEDS ORDERED: OPTIRAY 320 IV PRN (19:15)
[2017-10-26 19:28] LABS: BASO % 0.4 %; BASO ABS # 0.03 K/uL (0-0.2); EOS % 2.5 %; EOS ABS # 0.17 K/uL (0-0.5); HEMATOCRIT 42.1 % (42-52); HEMOGLOBIN 14.6 g/dL (14.0-18.0); IG# 0.02 K/uL (0.00-0.02); LYMPH % 30.8 %; LYMPH ABS # 2.11 K/uL (1.2-3.4); MEAN CELL VOLUME 84.9 fL (80-100); MEAN CORPUSCULAR HEMOGLOBIN 29.4 pg (25-34); MEAN CORPUSCULAR HGB CONC 34.7 g/dl (32-36); MEAN PLATELET VOLUME 9.8 fL (7.4-10.4); MONO % 5.1 %; MONO ABS # 0.35 K/uL (0.11-0.59); NEUT % 60.9 %; NEUT ABS # 4.18 K/uL (1.4-6.5); PLATELET COUNT 173 K/uL (130-400); RED CELL DISTRIBUTION WIDTH CV 13.5 % (11.5-14.5); RED CELL DISTRIBUTION WIDTH SD 41.6 fL (36.4-46.3); WHITE BLOOD COUNT 6.86 K/uL (4.8-10.8)
[2017-10-26 19:39] LABS: ISTAT CREATININE 1.1 mg/dl (0.6-1.3); ISTAT IONIZED CALCIUM 1.21 mmol/l (1.12-1.32); ISTAT POTASSIUM 4.3 mEq/L (3.3-5.0)
[2017-10-26 19:51] LABS: ALBUMIN 4.1 gm/dl (3.4-5.0); CALCIUM 9.6 mg/dl (8.5-10.1); CREATININE 1.1 mg/dl (0.60-1.40)
[2017-10-26 19:54] LABS: TOTAL PROTEIN 7.8 gm/dl (6.4-8.2)
--- NOTE | 2017-10-26 20:17 | DIAGNOSTIC IMAGING REPORT ---
ANGIO ABD/PELVIS WITH CONTRAST CLINICAL HISTORY: 51 years-old Male presenting with vomiting, mid abdominal pain, history of aortic aneurysm. TECHNIQUE: Multidetector CT angiography of the abdomen and pelvis was performed after the administration of intravenous contrast. 3-D volumetric and/or maximum intensity projection (MIP) images were subsequently reconstructed for review. IV contrast: 119 mL of Optiray 320. A dose lowering technique was used consistent with the principles of ALARA (as low as reasonably achievable). Stenosis measurements were based on NASCET-like criteria. COMPARISON: 06/12/2017. CT DOSE (mGy.cm): The estimated cumulative dose is 1323.54 mGy.cm. FINDINGS: Executive Staff Assistant topogram: Unremarkable. Vasculature: IVC and hepatic vein reflux of contrast suggests elevated right heart pressure. The abdominal aorta demonstrates focal saccular outpouching in the infrarenal portion along the left lateral aspect which is unchanged in size and appearance from prior exam extending 9 mm beyond the expected contour and measuring 1.5 cm in diameter. No new abnormality. No surrounding inflammatory change. Iliac vessels patent. Remaining abdomen and pelvis: Lung bases: Lungs and pleural spaces clear. Normal heart size. No pericardial or pleural effusion. Liver: Normal morphology. No liver lesion. Patent hepatic vasculature. Biliary: No intrahepatic or extrahepatic biliary ductal dilatation. Normal gallbladder. Pancreas: Mild parenchymal atrophy. Spleen: Normal. Adrenal glands: Normal. Kidneys and ureters: Small hypodensity at the upper pole the right kidney likely cyst. No hydronephrosis. No nephrolithiasis. Normal ureters. Bladder: Normal. Pelvic organs: Prostate and seminal vesicles normal. Bowel: Normal. No bowel obstruction. Peritoneal cavity: No free fluid or intraperitoneal gas. Lymph nodes: No enlarged lymph nodes in the abdomen or pelvis. Abdominal wall: Fat-containing bilateral inguinal hernias. Fat-containing ventral hernias in the epigastrium. Musculoskeletal: Degenerative changes of the spine. IMPRESSION: 1. Unchanged appearance of the saccular outpouching along the infrarenal abdominal aorta most consistent with a penetrating ulcer. No inflammatory change or surrounding hematomas to suggest rupture or impending rupture. No focal vessel occlusion or significant stenosis. No acute intra-abdominal pathology. 2. Findings could suggest elevated right heart pressure. 3. Multiple fat-containing ventral hernias in the epigastrium. Electronically signed by: Rubin Spears M.D. 10/26/2017 8:16 PM Dictated Date/Time: 10/26/2017 8:10 PM
[2017-10-26 20:52] VITALS: BP 114/74; PULSE 63; O2SAT 100
== END 2017-10-26 20:52 | disposition home or self-care (01) ==
LOC: C.EDB 18:46 → C.EDC 20:52
DX: R10.9 Unspecified abdominal pain (principal); E78.5 Hyperlipidemia, unspecified; I10 Essential (primary) hypertension; K21.9 Gastro-esophageal reflux disease without esophagitis; E78.00 Pure hypercholesterolemia, unspecified; Z85.828 Personal history of other malignant neoplasm of skin; F17.210 Nicotine dependence, cigarettes, uncomplicated; Z79.899 Other long term (current) drug therapy; I71.4 Abdominal aortic aneurysm, without rupture